=== PATIENT | female | born 1965 | race Caucasian/White ===

== ENCOUNTER 2024-11-08 12:52 | Emergency (ER) | payer OTHER, MEDICAID ==
[~2024-11-08] VITALS: Ht 167.6 cm; Wt 100.0 kg
[2024-11-08 13:02] VITALS: O2SAT 99
[2024-11-08 13:50] VITALS: TEMP 36.6
[2024-11-08 13:52] LABS: BASOPHILS % 0.8 % (0.0-2.0); EOSINOPHILS % 1.4 % (0.0-5.0); HEMATOCRIT. 42.5 % (36.0-48.0); HEMOGLOBIN. 14.3 g/dL (12.0-16.0); LYMPHOCYTES % 23.6 % (20.0-50.0); MEAN CORPUSCULAR HEMOGLOBIN 28.4 pg (28.0-32.0); MEAN CORPUSCULAR HGB CONC 33.6 g/dL (31.0-37.0); MEAN CORPUSCULAR VOLUME 84.6 fL (81.0-99.0); MEAN PLATELET VOLUME 8.4 fl (7.4-10.4); MONOCYTES % 5.5 % (2.0-8.0); NEUTROPHILS % 68.7 % (40.0-76.0); PLATELET 301 x1000/uL (130-400); RED BLOOD CELL COUNT 5.02 mill/uL (4.2-5.4); RED CELL DISTRIBUTION WIDTH 13.2 % (11.6-14.6); WHITE BLOOD COUNT 6.7 x1000/uL (4.5-11.0)
[2024-11-08 13:59] LABS: CHLORIDE 103 mEq/L (98-107); POTASSIUM 4.1 mEq/L (3.5-5.1); SODIUM 139 mEq/L (136-145)
[2024-11-08 14:00] LABS: CALCIUM 9.9 mg/dL (8.7-10.4); CARBON DIOXIDE 26 mEq/L (21-32)
[2024-11-08 14:05] LABS: CREATININE 0.9 mg/dL (0.6-1.0); GLUCOSE 168 mg/dL (70-105); UREA NITROGEN BLOOD 19 mg/dL (9-23)
[2024-11-08] MEDS: SODIUM CHLORIDE 0.9% 1,000 ML IV ONE (14:06)
[2024-11-08 14:07] LABS: ALANINE AMINOTRANSFERASE 69 IU/L (10-49); ALBUMIN 4.5 g/dL (3.2-4.8); ASPARTATE AMINOTRANSFERASE 33 IU/L (<34); BILIRUBIN DIRECT 0.2 mg/dL (<=3.0)
[2024-11-08 14:08] LABS: BILIRUBIN TOTAL 0.8 mg/dL (0.1-1.0); PROTEIN TOTAL 7.2 g/dL (6.0-8.3)
[2024-11-08] MEDS: FAMOTIDINE 20MG/2ML VIAL IV ONE (14:11)
[2024-11-08] MEDS: METOCLOPRAMIDE HCL 10MG/2ML VIAL IV ONE (14:12)
[2024-11-08 18:03] LABS: GLUCOSE URINE NEGATIVE (NEGATIVE); KETONES URINE NEGATIVE (NEGATIVE); LEUKOCYTE ESTERASE URINE TRACE (NEGATIVE); NITRITE URINE NEGATIVE (NEGATIVE); OCCULT BLOOD URINE 1+ (NEGATIVE); PROTEIN URINE NEGATIVE (NEGATIVE); SPECIFIC GRAVITY URINE 1.016 (1.005-1.030)
[2024-11-08 18:26] LABS: CLARITY URINE SL HAZY (CLEAR); COLOR URINE STRAW (YELLOW)
[2024-11-08 18:27] LABS: WBC URINE 0-2 /hpf (0-2)
[2024-11-08 18:28] LABS: BACTERIA URINE TRACE; SQUAMOUS EPITHELIAL CELL URINE 2+ /lpf (RARE/1+)
[2024-11-08] MEDS ORDERED: IBUP-2029 MT (18:48)
[2024-11-08] MEDS ORDERED: ONDA4TAB50 MT (18:49)
[2024-11-08] MEDS ORDERED: FAMO-135 MT (18:49)
[2024-11-08 19:27] VITALS: BP 157/93; PULSE 82; RESP 13; O2SAT 100
== END 2024-11-08 19:31 | disposition home or self-care (01) ==
LOC: ER 12:52
DX: A05.9 Bacterial foodborne intoxication, unspecified (principal); N13.2 Hydronephrosis with renal and ureteral calculous obstruction; R03.0 Elevated blood-pressure reading, without diagnosis of hypertension
CPT/HCPCS: 80076; 80048; 81003; 83690; 85025; 36415; 74176; 93005; 96361; 96374; 96375; 99285; J1308; J2765; J7030; Z7610 ×2; A4606